=== PATIENT | female | born 1985 | race Caucasian/White ===

== ENCOUNTER 2024-08-18 16:34 | Emergency (ER) | payer OTHER ==
[~2024-08-18] VITALS: Ht 152.4 cm; Wt 77.1 kg
[2024-08-18] MEDS ORDERED: ALBUTEROL2.5 MG/3 M (16:43)
[2024-08-18 18:00] LABS: HEMATOCRIT 32.5 % (36.0-45.00); HEMOGLOBIN 10.9 g/dL (12.0-15.00); MEAN CELL VOLUME 82.8 fL (80.00-100.00); MEAN CORPUSCULAR HEMOGLOBIN 27.8 pg (27.00-32.0); MEAN CORPUSCULAR HGB CONC 33.5 g/dl (32.0-36.0); PLATELET COUNT 262 K/uL (150-450); RED BLOOD COUNT 3.92 M/uL (4.00-6.00)
[2024-08-18 18:16] LABS: COVID-19 AG NEGATIVE (NEGATIVE)
[2024-08-18 18:22] LABS: ALBUMIN 3.4 gm/dL (3.4-5.0); BILIRUBIN TOTAL 0.22 mg/dL (0.3-1.2); CALCIUM 8.5 mg/dL (8.5-10.1); CREATININE SERUM 0.82 mg/dL (0.55-1.02); GFR 77.21; POTASSIUM 3.5 mEq/L (3.5-5.1); TOTAL PROTEIN 7.4 gm/dL (6.4-8.2)
[2024-08-18 19:57] LABS: INFLUENZA A AG NEGATIVE (NEGATIVE)
[2024-08-18] MEDS ORDERED: TUSNEL LIQUID178 ML PO (20:17)
[2024-08-18] MEDS ORDERED: XOPENEX CO1.25 MG/0. IH (20:17)
== END 2024-08-18 20:35 | disposition home or self-care (01) ==
LOC: ER 16:34
PROVIDERS: General Practice
DX: R06.02 Shortness of breath (principal); Z20.822 Contact with and (suspected) exposure to COVID-19